=== PATIENT | female | born 1990 | race Caucasian/White ===

== ENCOUNTER 2019-05-07 14:15 | Emergency (ER) | payer OTHER ==
[~2019-05-07] VITALS: Ht 167.6 cm; Wt 81.2 kg
[2019-05-07] MEDS ORDERED: ONDANSETRON ODT 4 MG TAB.RAPDIS ONE (15:35)
[2019-05-07] MEDS ORDERED: ONDANSETRON ODT 4 MG TAB.RAPDIS PO ONE (15:45)
--- NOTE | 2019-05-07 15:52 | RAD ---
CT head without contrast dated 05/07/2019. No comparison available. CLINICAL INDICATION: Headache. TECHNIQUE: Contiguous axial imaging the head was performed from skull base to vertex. No contrast administered. FINDINGS: Ventricles and sulci are within normal limits for age. No midline shift or mass effect. Brain parenchyma is of normal attenuation. No hemorrhage or extra-axial collection. Posterior fossa and brainstem unremarkable. Minimal mucosal thickening of the posterior ethmoid air cells on the right. The visualized paranasal sinuses and mastoid air cells are otherwise clear. No apparent calvarial abnormality. IMPRESSION: No evidence of acute intracranial abnormality. Electronically signed by: Tony Rosales MD (05/07/2019 3:49 PM) [facility]
[2019-05-07 15:53] VITALS: BP 124/80
[2019-05-07] MEDS ORDERED: ONDA4TAB12 PO ×2 (16:07→16:19)
--- NOTE | 2019-05-07 16:22 | PHYS DOC ---
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 Patient has had a tubal ligation Review of Systems Review of Systems Constitutional: Denies fever or chills [] Eyes: Denies change in visual acuity, redness, or eye pain [] HENT: Denies nasal congestion or sore throat [] Respiratory: Denies cough or shortness of breath [] Cardiovascular: No additional information not addressed in HPI [] GI: Denies abdominal pain, : Denies dysuria or hematuria [] Musculoskeletal: Denies back pain or joint pain [] Integument: Denies rash or skin lesions [] Neurologic: All other systems were reviewed and found to be within normal limits, except as documented in this note. Current Medications Current Medications Current Medications Medications (Trade) Dose Ordered Sig/César Start Time Stop Time Status Last Admin Dose Admin Ondansetron HCl (Zofran Odt) 4 mg STK-MED ONCE 05/07/19 15:35 05/07/19 15:35 DC Allergies Allergies Allergies Coded Allergies Type Severity Reaction Last Updated Verified No Known Drug Allergies 05/07/19 No Physical Exam Physical Exam Constitutional: Well developed, well nourished, no acute distress, non-toxic appearance. [] HENT: Contusion the right temporal area Eyes: PERRLA, EOMI, conjunctiva normal, no discharge. [] Neck: Normal range of motion, no tenderness, supple, no stridor. [] Cardiovascular:Heart rate regular rhythm, no murmur [] Lungs & Thorax: Bilateral breath sounds clear to auscultation [] Abdomen: Bowel sounds normal, soft, no tenderness, no masses, no pulsatile masses. [] Skin: Warm, dry, no erythema, no rash. [] Back: No tenderness, no CVA tenderness. [] Extremities: No tenderness, no cyanosis, no clubbing, ROM intact, no edema. [] Neurologic: Alert and oriented X 3, normal motor function, normal sensory function, no focal deficits noted. [] Psychologic: Affect normal, judgement normal, mood normal. [] Current Patient Data Vital Signs Vitals reviewed see nurse's note for complete vitals EKG EKG [] Radiology/Procedures Radiology/Procedures [] Impressions: IMPRESSION: No evidence of acute intracranial abnormality. Electronically signed by: Tony Rosales MD (05/07/2019 3:49 PM) [facility] DICTATED AND SIGNED BY: TONY ROSALES MD DATE: 05/07/19 1549 CC: NYASIA TINOCO MD; PCP,NO ~ Course & Med Decision Making Course & Med Decision Making Pertinent Labs and Imaging studies reviewed. (See chart for details) []Closed head injury head CT negative patient reassured symptom management treatment provided Dragon Disclaimer Dolores Disclaimer This electronic medical record was generated, in whole or in part, using a voice recognition dictation system. Departure Departure: Impression: Primary Impression: Head injury Disposition: 01 HOME, SELF-CARE Condition: STABLE Patient Instructions: Head Injury, Adult, [id number] Scripts Ondansetron (ONDANSETRON ODT) 4 Mg Tab.rapdis 1 TAB PO PRN Q6-8HRS PRN for NAUSEA/VOMITING, #16 TAB Prov: NYASIA TINOCO MD 05/07/19 Ondansetron (ONDANSETRON ODT) 4 Mg Tab.rapdis 1 TAB PO PRN Q6-8HRS PRN for NAUSEA/VOMITING, #16 TAB Prov: NYASIA TIONCO MD 05/07/19 NYASIA TINOCO MD May 07, 2019 16:22
== END 2019-05-07 16:16 | disposition home or self-care (01) ==
LOC: ER 14:15
DX: S00.03XA Contusion of scalp, initial encounter (principal); W00.2XXA Other fall from one level to another due to ice and snow, initial encounter; Y93.89 Activity, other specified; Y92.89 Other specified places as the place of occurrence of the external cause; Y99.8 Other external cause status
CPT/HCPCS: 70450; 99284; Q0162